=== PATIENT | female | born 1980 | race Caucasian/White ===

== ENCOUNTER → 2019-02-16 16:07 | Outpatient (CLI) | payer OTHER, SELFPAY ==
[2019-02-19 14:40] LABS: HPV Reflexed? NOT INDICATED
== END ==
PROVIDERS: Visit Provider Obstetrics & Gynecology
DX: Z12.4 Encounter for screening for malignant neoplasm of cervix (principal)
CPT/HCPCS: 88175; G0145

== ENCOUNTER → 2019-06-15 09:26 | Outpatient (CLI) | payer OTHER, SELFPAY ==
[2019-06-15 11:07] LABS: hCG Titer Quant., Serum 263 mIU/mL (1-3)
== END ==
PROVIDERS: Visit Provider Obstetrics & Gynecology
DX: N91.2 Amenorrhea, unspecified (principal)
CPT/HCPCS: 36415; 84702; 86850; 86900

== ENCOUNTER → 2019-06-17 09:23 | Outpatient (CLI) | payer OTHER, SELFPAY ==
[2019-06-17 10:57] LABS: hCG Titer Quant., Serum 93 mIU/mL (1-3)
== END ==
PROVIDERS: Visit Provider Obstetrics & Gynecology
DX: O20.0 Threatened abortion (principal); Z3A.00 Weeks of gestation of pregnancy not specified
CPT/HCPCS: 36415; 84702

== ENCOUNTER → 2021-02-06 16:30 | Outpatient (CLI) | payer OTHER, SELFPAY | PROVIDERS: Referring Provider Obstetrics & Gynecology; Visit Provider Obstetrics & Gynecology | DX: Z01.812 Encounter for preprocedural laboratory examination (principal) | CPT/HCPCS: 87635; C9803; U0002 ==

== ENCOUNTER 2021-02-11 07:15 | Inpatient (IN) | payer OTHER, SELFPAY ==
[2021-02-11] VITALS (62 sets, daily range): BP systolic 79–136; BP diastolic 42–67; PULSE 53–105; TEMP 36.1–37.3; O2SAT 92–100; BMI 24.8
[2021-02-11] MEDS: Oxytocin 30 units/NS 500 ml 30 UNITS/500 ML IV.SOLN IV (08:14)
[2021-02-11 08:21] LABS: Absolute Lymphocyte Count 1.29 X10^3/uL (0.83-4.51); Absolute Neutrophil Count 4.5 X10^3/uL (2.0-7.7); Basophil# 0.02 X10^3/uL; Basophil% 0.3 % (0-1); Eosinophil# 0.06 X10^3/uL; Hematocrit 36.9 % (37-47); Hemoglobin 12.5 g/dL (12.0-15.0); Lymphocyte # 1.29 X10^3/ul (4.0); Lymphocyte % 20.5 % (19-41); Mean Corp Hgb Conc 33.9 g/dL (32-36); Mean Corpuscular Volume 94.4 fL (81-99); Mean Platelet Vol. 10.9 fl (6.2-12.0); Monocyte# 0.39 X10^3/uL; Monocyte% 6.2 % (0-10); NRBC Flagged by Analyzer 0 % (0-5); Neutrophil # 4.49 X10^3/uL (2.7-7.7); Neutrophil % 71.2 % (47-70); Platelet Count 172 K/mm3 (150-450); RBC Distribution Width SD 47.7 fl (35.1-43.9); Red Blood Count 3.91 M/mm3 (4.2-5.4); White Blood Count 6.3 K/mm3 (4.4-11.0)
[2021-02-11] MEDS: Lactated Ringers 1,000 ML 50 ML IV (08:30)
[2021-02-11] MEDS: 0.9% Normal Saline Single 100 ML IV.SOLN. INTRA-UTER (08:38)
--- NOTE | 2021-02-11 08:42 | PCM.HP.OB ---
History Date of Admission: 02/11/21 Final MARINA: 02/17/21 Final MARINA Source: US <20 weeks Gestational age: 39 Weeks and 1 Days History of this : This is a 40 year-old, 2 para 0-0-1-0 presents at 39-1/7 weeks for induction of labor to advanced maternal age. She denies any vaginal bleeding or leaking of fluid. She has had no regular contractions. She is had good movement. Her has been uncomplicated to date except for advanced maternal age. Allergies carbamazepine [From Tegretol] Adverse Reaction (Mild, Verified 02/11/21 07:35) Vomiting used for seizures in childhood; cannot remember exact reaction. phenytoin [From Dilantin] Adverse Reaction (Verified 02/11/21 07:36) Vomiting Home Medications: Home Medications Vits [Prenatabs FA] 1 tablet PO DAILY 02/11/21 Smoking Status: Never smoker Alcohol: None Number of Fetus(es): 1 NST - FHR Rate Baby A Baseline: normal Variability:: Moderate Accelerations:: 15 x 15 Decelerations:: None NST Reactive:: Yes FHR Category:: Category I Uterine Activity:: quiet History Past Pregnancies: Past Pregnancies Delivery Date Name GA/ Weeks Outcome Route Wt Sex Labor Length Anesthesia Delivery Location Provider FOB Expected Delivery Method: Spontaneous Vaginal Review of Systems Constitutional: Denies: Anorexia, Chills, Fever Eyes: Denies: Blurred vision Cardiovascular: Denies: Chest Pain Respiratory: Denies: Cough, Shortness of Breath Gastrointestinal: Denies: Constipation, Diarrhea Neurological: Denies: Balance problems, Change in Speech, Slurred speech, Confusion Psychiatric: Reports: Anxiety Hematologic/ Lymphatic: Denies: Hx of blood clot Physical Exam Vitals: Vital Signs Temp Pulse BP Pulse Ox 99.0 F 74 115/58 L 98 02/11/21 08:33 02/11/21 08:33 02/11/21 08:33 02/11/21 07:47 General: Alert, Cooperative, No apparent distress Cardiovascular: Regular rate Lungs: Normal air movement Abdomen: Soft, Non Tender, Non-Distended, Gravid, Appropriate for Gestational Age Extremities:: No edema Neurological: Neuro grossly intact. Negative for: Slurred Speech, Unsteady Gait PSYCHIATRIC REGISTERED NURSE: Normal external genitalia Estimated gestational size: Appropriate for gestational size Presentation: Cephalic Cervix Dilation (cm): 1 Station: -2 Effacement (%): 70 Assessment/Plan This is a 40 year-old, avid 2 para 0 at 39 1/7 weeks for induction of labor due advanced maternal age. Risk benefits and alternatives to Gonzalez induction with Pitocin and artificial rupture membranes were discussed with patient, her questions were answered to her satisfaction and consent was signed. May have epidural as needed for pain control. weight is less than 4500 g and pelvis is clinically adequate to expect vaginal delivery. Procedure note: Gonzalez catheter was placed over stylette through the internal cervical os in the usual sterile fashion inflated to 30 cc. Placement over internal os was confirmed. Patient and fetus tolerated the procedure well.
[2021-02-11] MEDS: Lactated Ringers 500 ML 999 ML IV (12:51)
[2021-02-11] MEDS: fentaNYL-bupivacaine (epidural) 100 ML BAG EPIDURAL ×2 (13:28→18:25)
[2021-02-11] MEDS: Lactated Ringers 1,000 ML 200 ML IV (17:26)
[2021-02-11] MEDS: Oxytocin 30 units/NS 500 ml 30 UNITS/500 ML IV.SOLN 334 UNITS IV (22:32)
[2021-02-11] MEDS: Methylergonovine 0.2 MG/ML Ampul IM (22:40)
--- NOTE | 2021-02-11 22:53 | PCM.OPRPT ---
Vaginal Delivery Maternal Presentation: Medically Indicated Induction Method of Induction: Pitocin, Gonzalez Bulb, Amniotomy Medical Reason for Induction: - - advanced maternal age Amniotic Membrane Rupture Type: Artificial Amniotic Fluid Description: Clear Final MARINA: 02/17/21 Final MARINA Source: US <20 weeks Gestational age: 39 Weeks and 1 Days Date of Procedure: 02/11/21 Pre-Operative Diagnosis: labor Post-Operative Diagnosis: same Surgery/ Procedure Performed: Spontaneous Vaginal Delivery Type of Anesthesia: Epidural Description of Procedure: A vigorous female was delivered SKY over a second-degree perineal laceration. The remainder the was delivered with maternal pushing and gentle traction only in less than 15 seconds. The Pitocin infusion was initiated for active management of the third stage. The cord was clamped and cut after 1 minute. The was attended to by the waiting nursing staff. The placenta was delivered spontaneously and intact. The cervix and vagina were intact. The Methergine was given after some clots were removed from the uterus to help prevent uterine atony. After the Methergine, IV Pitocin and fundal massage the uterus was firm and bleeding was minimal. The second-degree perineal laceration was repaired with 3-0 Vicryl suture in a running standard fashion. Sponge and needle counts were correct. A vaginal sweep was completed by me. Delivery time 2228 Presentation: SKY Placental Delivery Description: Spontaneous, Expressed Placenta Disposition: [facility] Cord Vessel Description: 3 Vessels Cord Entanglement: None Estimated Blood Loss: 500 A gender: Female - Aislynn (1 minute): 9 (5 minute): 9 Episiotomy Description: None Laceration: 2nd degree - perineal Medications given after delivery: IV Pitocin, IM Methergin Complications: None
[2021-02-12] VITALS (8 sets, daily range): BP systolic 99–109; BP diastolic 40–60; PULSE 65–78; RESP 16–18; TEMP 36.1–36.5
[2021-02-12] MEDS: Naproxen 250 MG Tablet 500 MG PO ×2 (10:44→20:26)
[2021-02-12] MEDS: Senna/Docusate Sodium 1 Tablet PO (12:37)
--- NOTE | 2021-02-12 13:30 | PCM.PN.OB ---
Subjective: Doing well per patient and nursing staff. Ambulating and taking p.o. without difficulty. Voiding and passing flatus. Pain controlled. Breast-feeding without difficulty. Is any headache, visual changes, chest pain, shortness of breath, leg pain, increased vaginal bleeding or clots. DC home tomorrow - Physical Exam Vitals/I&O's: Vital Signs Temp Pulse Resp BP Pulse Ox 97.7 F L 77 16 103/46 L 100 02/12/21 08:30 02/12/21 08:30 02/12/21 08:30 02/12/21 08:30 02/11/21 19:58 Oxygen Delivery Method Room Air Weight: 168 lb 6 oz Body Mass Index (BMI) 24.8 Intake and Output for Last 24 Hours 02/10/21 02/11/21 02/12/21 23:59 23:59 23:59 Intake Total 2805.87 / 2805.87 327.43 / 327.43 Output Total 1850 / 1850 Balance 2805.87 / 2805.87 -1522.57 / -1522.57 General: Alert, Oriented x3, Cooperative HEENT: Atraumatic, Normocephalic Neck: Trachea Midline Lungs: Clear to auscultation, Normal air movement, No rhonchi, No wheeze Cardiovascular: Regular rate, Regular Rhythm, No murmurs Abdomen: Bowel Sounds Present, Soft - Fundus firm to below umbilicus Extremities: No edema - Homans negative Psych/Mental Status: Normal Affect, Appropriate Current Medications Acetaminophen (Acetaminophen 500 Mg Tablet) 1,000 mg PO Q8H PRN PRN PRN Reason: Pain Score 1-3 Bisacodyl (Bisacodyl 10 Mg Suppository) 10 mg RC UD PRN PRN Reason: If no BM Dibucaine (Dibucaine 30 Gm Tube) 1 applic TOPICAL TID PRN PRN; Protocol PRN Reason: Discomfort Hydrocortisone (Hydrocortisone 2.5% Crm) 1 applic TOPICAL TID PRN PRN; Protocol PRN Reason: Discomfort Methylergonovine Maleate (Methylergonovine 0.2 Mg/Ml Ampul) 0.2 mg IM X1 PRN PRN Reason: Excess bleeding/uterine atony Naproxen (Naproxen 250 Mg Tablet) 500 mg PO Q8H PRN PRN PRN Reason: Pain Score 1-3 Last Admin: 02/12/21 10:44 Dose: 500 mg Documented by: Ondansetron HCl (Ondansetron 4 Mg/2 Ml Vial) 4 mg IV Q4H PRN PRN PRN Reason: Nausea Prochlorperazine Edisylate (Prochlorperazine 10 Mg/2 Ml Vial) 10 mg IV Q6H PRN PRN PRN Reason: NAUSEA/VOMITING Senna/Docusate Sodium (Senna/Docusate Sodium 1 Tablet) 1 - 2 tablet PO DAILY PRN PRN PRN Reason: Constipation Last Admin: 02/12/21 12:37 Dose: 2 tablet Documented by: Simethicone (Simethicone 80 Mg Tablet) 80 mg PO PCHS PRN PRN Reason: Indigestion/Stomach pain Sodium Chloride (0.9% Saline Lock 10 Ml Syringe) 5 - 15 ml IV UD PRN PRN Reason: SALINE FLUSH Medical Necessity - Tobacco Use Smoking Status: Never smoker Assessment/Plan A:PPD #1 2nd degree perineal laceration P: 1) Routine and instructions 2) Pain management 3) vitals stable 4) D/C home tomorrow
[2021-02-12] MEDS: Acetaminophen 500 MG Tablet 1000 MG PO (15:48)
[2021-02-13 03:36] VITALS: BP 109/44; PULSE 71; RESP 16; TEMP 36.5
--- NOTE | 2021-02-13 07:22 | PCM.PN.OB ---
Subjective: pain well controlled, average lochia. No BM yet. Urinating w/o difficulty. Working on - Physical Exam Vitals/I&O's: Vital Signs Temp Pulse Resp BP Pulse Ox 97.7 F L 71 16 109/44 L 100 02/13/21 03:36 02/13/21 03:36 02/13/21 03:36 02/13/21 03:36 02/11/21 19:58 Oxygen Delivery Method Room Air Weight: 76.374 kg Body Mass Index (BMI) 24.8 Intake and Output for Last 24 Hours 02/11/21 02/12/21 02/13/21 23:59 23:59 23:59 Intake Total 2805.87 / 2805.87 327.43 / 327.43 Output Total 1850 / 1850 Balance 2805.87 / 2805.87 -1522.57 / -1522.57 General: Alert, Cooperative, No apparent distress Current Medications Acetaminophen (Acetaminophen 500 Mg Tablet) 1,000 mg PO Q8H PRN PRN PRN Reason: Pain Score 1-3 Last Admin: 02/12/21 15:48 Dose: 1,000 mg Documented by: Bisacodyl (Bisacodyl 10 Mg Suppository) 10 mg RC UD PRN PRN Reason: If no BM Dibucaine (Dibucaine 30 Gm Tube) 1 applic TOPICAL TID PRN PRN; Protocol PRN Reason: Discomfort Hydrocortisone (Hydrocortisone 2.5% Crm) 1 applic TOPICAL TID PRN PRN; Protocol PRN Reason: Discomfort Methylergonovine Maleate (Methylergonovine 0.2 Mg/Ml Ampul) 0.2 mg IM X1 PRN PRN Reason: Excess bleeding/uterine atony Naproxen (Naproxen 250 Mg Tablet) 500 mg PO Q8H PRN PRN PRN Reason: Pain Score 1-3 Last Admin: 02/12/21 20:26 Dose: 500 mg Documented by: Ondansetron HCl (Ondansetron 4 Mg/2 Ml Vial) 4 mg IV Q4H PRN PRN PRN Reason: Nausea Prochlorperazine Edisylate (Prochlorperazine 10 Mg/2 Ml Vial) 10 mg IV Q6H PRN PRN PRN Reason: NAUSEA/VOMITING Senna/Docusate Sodium (Senna/Docusate Sodium 1 Tablet) 1 - 2 tablet PO DAILY PRN PRN PRN Reason: Constipation Last Admin: 02/12/21 12:37 Dose: 2 tablet Documented by: Simethicone (Simethicone 80 Mg Tablet) 80 mg PO PCHS PRN PRN Reason: Indigestion/Stomach pain Sodium Chloride (0.9% Saline Lock 10 Ml Syringe) 5 - 15 ml IV UD PRN PRN Reason: SALINE FLUSH Medical Necessity - Tobacco Use Smoking Status: Never smoker Assessment/Plan PPD#2 s/p doing well routine instructions
--- NOTE | 2021-02-13 07:24 | DCINST_ITS ---
Discharge Diet: No Restrictions Discharge Activity: Return to Normal Activity, May not drive while taking narcotic pain medications., May Shower May resume sexual activity in: 4-6 weeks Additional Activity Instructions:: Nothing in the vagina for 4-6 weeks. You may return to work/school in 6 weeks. Call your doctor if your incision/area has: Continuous Slow Oozing, Sudden Increased Bleeding, Increased Pain/ Swelling, Increased Redness, Foul Smelling Discharge Additional Instructions: If you experience any of the following, contact your healthcare provider. * Bleeding that soaks a pad every hour for 2 hours * Fever 100.4 or higher * Unrelieved incision or abdominal pain * Swelling, redness, discharge or bleeding from your incision or episiotomy site * Your incision begins to separate * Problems urinating (including inability to urinate or burning while urinating). * Visual changes * Severe headache * Flu-like symptoms * Pain or redness in one of both of your breasts * Pain, warmth, tenderness or swelling in your legs, especially the calf area * Frequent nausea and vomiting * Symptoms of depression or anxiety If you experience any of the following, call 911 or go to the nearest Emergency Room. * Chest pain * Problems breathing * Seizure activity * Partial or complete paralysis of a body part, slurred speech, weakness or drooping of the face, or a sudden inability to walk or hold your balance Allergies/Adverse Reactions: Allergies carbamazepine [From Tegretol] Adverse Reaction (Mild, Verified 02/11/21 07:35) Vomiting used for seizures in childhood; cannot remember exact reaction. phenytoin [From Dilantin] Adverse Reaction (Verified 02/11/21 07:36) Vomiting Medications to take at Discharge Vits [Prenatabs FA ] 1 tablet PO DAILY 02/11/21 Ibuprofen [Motrin] 600 mg PO Q6H PRN #60 tab 02/13/21 The following prescriptions were given: Ibuprofen [Motrin] 600 mg PO Q6H PRN #60 tab PRN Reason: Pain Transmission Status: Pending to [id number] Please Follow Up With: Ivory Pereira MD - [phone] When: Call to make an appointment with your doctor's office in 1-2 and 6 weeks or as needed Primary Care Physician: Care Physician,No Primary [Primary Care Provider] - Test Results: Test results from this visit will be discussed in further detail at your follow- up appointment, if applicable.
[2021-02-13 08:30] VITALS: BP 104/59; PULSE 71; RESP 16; TEMP 36.5
== END 2021-02-13 10:25 | disposition home or self-care (01) | DRG 807 ==
PROVIDERS: Advanced Practice Midwife; Admitting Provider Obstetrics & Gynecology; Referring Provider Obstetrics & Gynecology; Visit Provider Obstetrics & Gynecology
DX: O70.1 Second degree perineal laceration during delivery (principal); Z37.0 Single live birth; Z3A.39 39 weeks gestation of pregnancy
CPT/HCPCS: 59025; 59050; 85025; 86850; 86900; 86901; 99218; J7120; G0378

== ENCOUNTER 2021-03-01 13:46 | Outpatient (RCR) | payer OTHER, SELFPAY ==
[2021-02-11 07:33] VITALS: BMI 24.8
== END 2021-05-02 23:59 ==
LOC: IMMUN 13:46
PROVIDERS: Visit Provider Family Medicine
DX: Z23 Encounter for immunization (principal)
CPT/HCPCS: 0001A; 0002A; 91300

== ENCOUNTER 2023-10-10 08:16 | Day surgery (SDC) | payer OTHER, SELFPAY ==
--- NOTE | 2023-09-24 17:20 | PCM.HP.BLA ---
History and Physical Date of Admission: 10/10/23 HPI: The patient is a 42 year old female presenting for pre-operative visit. She is scheduled for Hysteroscopy D&C, polyp resection, for endometrial polyp on 10/10/23. Procedure discussed along with risks, benefits and complications. Other alternatives discussed for management. Consent form signed? Yes. ? ? PAST MEDICAL HISTORY PAST MEDICAL HISTORY Diagnosis Date ? Breast lump ? ? Environmental allergies ? ? Infertility, female ? ? Seizure (HCC) ? ? Off medication since age 15 ? ? PAST SURGICAL HISTORY PAST SURGICAL HISTORY Procedure Laterality Date ? BX BREAST PERC NEED W/GUID ? 01/09/13 ? U/S needle core bx 1 Oclock left breast mass ? MASTECTOMY, PARTIAL ? 01-29-13 ? left ? PAST SURGICAL HISTORY OF ? ? ? breast implants ? REM LESION TRUNK,ARM, LEG <0.5 CM ? 03/07/13 ? Exc upper back deacon cyst ? ? ? CURRENT MEDICATIONS Current Outpatient Medications Medication Sig Dispense Refill ? [id number] ( VITAMIN) tab Take 1 tablet by mouth. ? ? ? omega-3/dha/epa/fish oil (FISH OIL HIGH POTENCY ORAL) Take by mouth. ? ? ? No current facility-administered medications for this visit. ? ? ALLERGIES: Succinylcholine Chloride and Tegretol [Carbamazepine] ? PERSONAL HISTORY: SOCIAL HISTORY Social History ? Tobacco Use ? Smoking status: Never ? Smokeless tobacco: Never Vaping Use ? Vaping Use: Never used Substance Use Topics ? Alcohol use: Not Currently ? ? Alcohol/week: 1.0 standard drink of alcohol ? ? Types: 1 Glasses of Wine (5oz) per week ? ? Comment: rare ? Drug use: No ? FAMILY HISTORY: FAMILY HISTORY FAMILY HISTORY Problem Relation Age of Onset ? Cancer Mother ? ? skin cancer ? other (endometrosis) Mother ? ? Diabetes Father ? ? No Known Problems Sister ? ? other (ovarian cyst) Sister ? ? Stroke Maternal Grandfather ? ? Heart Paternal Grandmother ? ? Cancer Paternal Grandmother ? ? Lung? ? Alzheimer's Disease Paternal Grandfather ? ? ? REVIEW OF SYMPTOMS: GENERAL: denies fevers or chills ENDOCRINOLOGY: has not been on steroids Cardiology : denies palpitations or chest pain Respiratory: denies SOB or cough Hematology: denies history of prolonged bleeding or easy bruising or VTE Allergy: Denies history of personal or family history of allergy to anesthesia ? PHYSICAL EXAMINATION: ? VITALS: Last menstrual period 07/21/2023. ? GENERAL: The patient is well nourished, well hydrated in no acute distress. , The patient is oriented to time, place, and person. NECK: Supple. No lynphadenopathy, normal thyroid, no thyromegaly. LUNGS: Clear to auscultation bilaterally. no wheezes, rhonchi or rales HEART: Regular rate and rhythm, Normal heart sounds, and No murmurs or gallops GENITALIA: Normal external genitalia, Urethral meatus normal, Bladder nontender, normal vagina and normal vaginal tone, normal cervix, normal uterus, size and consistency, normal adnexa without masses or tenderness, and perineum WNL WET PREP: Not indicated ? IMPRESSION: endometrial polyp ? PLAN: The risks/benefits/alternatives and personal involved for the planned hysteroscopy D&C, polyp resection were reviewed with the patient. Her questions were answered to her satisfaction and she desires to proceed. Consent was signed. I reviewed with her postop instructions and expectations. ? Given aygestin to delay menses ? I have reviewed and updated past medical and surgical history, medications and allergies Assessment & Plan Assessment/Plan (1) Endometrial polyp:
[2023-10-10 08:45] LABS: Internal QC Validated? YES +Cl - CLEAR BKGD; Pregnancy, Urine Negative Negative
[2023-10-10] MEDS: Lactated Ringers 1,000 ML 15 ML IV (09:01)
[2023-10-10] MEDS: Ketorolac 30 MG/ML Syringe IV (09:02)
[2023-10-10] MEDS: Acetaminophen 500 MG Tablet 1000 MG PO (09:02)
[2023-10-10 09:05] VITALS: BP 111/70; PULSE 69; RESP 16; TEMP 36.8; O2SAT 100; BMI 22.4
[2023-10-10 09:08] LABS: Hematocrit 41.3 % (37-47); Hemoglobin 13.3 g/dL (12.0-15.0); Mean Corp Hgb Conc 32.2 g/dL (32-36); Mean Corpuscular Hgb 29.7 pg (27.0-32.0); Mean Corpuscular Volume 92.2 fL (81-99); Mean Platelet Vol. 10.5 fl (6.2-12.0); Platelet Count 216 K/mm3 (150-450); RBC Distribution Width CV 12.8 % (11.6-14.6); Red Blood Count 4.48 M/mm3 (4.2-5.4); White Blood Count 5.4 K/mm3 (4.4-11.0)
--- NOTE | 2023-10-10 10:05 | EMB_PTH ---
PATIENT: JOSEPHINE ARENAS [place] [facility] [place][id number] AGE/SX: 42/F ROOM: RE10/10/[address]: Dr. Ivory Pereira MD : [id number] BED: DIS: 10/10/2023 SPEC #: [id number] RECD: 10/10/23 13:45 STATUS: JUSTINE REConner #: [id number] MELVIN: 10/10/23 10:[address]: Ivory Pereira DEPT: SURGICAL PATHOLOGY RECD BY: Radha Sarabia ENTERED: 10/11/23 09:27 SP TYPE: ENDOM BX/C ROB DR: No Primary Care Phys Tissues: Endometrium, NOS Procedures: Surgery Specimen Level IV HEADER OPERATION: Hysteroscopy, D & C Symphion PRE-OP DIAGNOSIS: Endometrial polyp TISSUE SUBMITTED: Endometrial curettings and contents MICROSCOPIC DIAGNOSIS Endometrium, curettings: Secretory endometrium. Fragments of myometrium with changes suspicious for adenomyosis. AM:lonnie 10/14/2023 MICROSCOPIC DESCRIPTION Slides are reviewed. GROSS DESCRIPTION Received in fixative is one container labeled with the patient's name and designated Endometrial curettings. The specimen consists of multiple irregular fragments of pink-licea soft tissue that in aggregate measure 5.0 x 4.0 x 0.2 cm. The specimen is totally submitted in three cassettes. / AM:lonnie 10/11/2023 TC:5 CPT: 58651
[2023-10-10] MEDS: Lidocaine 1% /Epi 1:100 (20ml) 20 ML Vial (12:10)
--- NOTE | 2023-10-10 12:27 | DCINST_ITS ---
Discharge Instructions Diet Discharge Diet: No restrictions Activity Discharge Activity: May Drive (10/11) Return to work on:: 10/14/23 May shower in (days): 1 May resume sexual activity in: 1 week Lifting Restrictions: none Dressing / Incision Call your doctor if your incision/area has: Sudden Increased Bleeding and Foul Smelling Discharge Call your doctor if you observe: Fever of 101 or Higher and Using more than 1 pad per hour (for 2 hrs in a row) Follow Up Care Please Follow Up With: Ivory Pereira MD When: YOu do not need a postop appointment. Monitor you bleeding over the next couple of cycles and let us know if you have problems or concerns. Call [phone] to make an appointment or send [email or web address] message with any concerns Test Results: Test results from this visit will be discussed in further detail at your follow- up appointment, if applicable. Discharge Plan Admission Primary Reason for Your Visit: Hysteroscopy dilation and curettage Attending Provider: Ivory Pereira Primary Care Provider: Care Physician,Kelly Primary Discharge Orders/Prescriptions Prescriptions: Continued vit,[id number] 1 TABLET tablet 1 tablet PO DAILY omega-3 fatty acids 300 mg capsule 600 mg PO DAILY Referrals / Follow Up: Care Physician,No Primary [Primary Care Provider] - Disposition Disposition (needs filled in before D/C Order can be placed): Home, Self Care
--- NOTE | 2023-10-10 12:29 | OP.PCM_ITS ---
Problems Associated Problem List Diagnoses (1) Endometrial polyp: Report of Operation Date of Procedure: 10/10/23 Pre-Operative Diagnosis: endometrial polyp Post-Operative Diagnosis: same Surgery/Procedure Performed:: Hysteroscopy D&C with possible polyp resection Description of Surgical Findings:: lush endometrium, normal cervix and vagina Surgeon: Ivory Pereira tin whiz machine operator: Rosio camacho [id number] Type of Anesthesia: MAC/Supplemental/Local Anesthesiologist: Frankie Aguilera Special Medications: none Specimen's removed: endometrial curettings, possible polyp Drains: none Estimated Blood Loss (mL): 10 Fluids Replaced: 350 mL Description of Procedure: The patient was taken to the OR where she was prepped and draped in dorsal l ithotomy position. The weighted speculum was placed in the vagina and the anterior lip of the cervix was grasped with a single-tooth tenaculum. C C were 5mm 1% lidocaine with 1-100,000 epinephrine solution C C were 5mm 1% lidocaine with 1-100,000 epinephrine solution a paracervical block was administered with 1% Xylocaine with 1-1000 epinephrine solution. The cervix was dilated easily was the uterus was anteverted.Diagnostic hysteroscopy was performed and the above findings were noted. The hysteroscope was removed. The Symphion device was readied and inserted. .A visual D&C was done of the endometrial cavity. There was a lot of lush endometrium. There may have been a polyp on the left Posterior part of the uterine cavity.The instruments were removed from the vagina. The specimen was handed off and sent to pathology. All sponge and needle counts were correct. Vaginal sweep was performed by me. The patient was awakened and taken to the recovery room in stable condition. Grafts/Implants Used: none Procedure Start Time: 12:09 Procedure Stop Time: 12:22 Complications none Admit VTE Documentation VTE Present on Admission: No VTE Mechan Device Prophylaxis: SCD's VTE Pharm Prophylaxis ordered?: No Reason prophylaxis not ordered:: Procedure Not Indicated
[2023-10-10 12:38] VITALS: BP 100/51; BP 111/70; PULSE 82; RESP 16; TEMP 36.8; O2SAT 100
[2023-10-10 12:43] VITALS: BP 101/58; BP 111/70; PULSE 77; RESP 16; O2SAT 100
[2023-10-10 12:49] VITALS: BP 100/53; BP 111/70; PULSE 73; RESP 14; O2SAT 100
[2023-10-10 13:47] VITALS: BP 111/70
== END 2023-10-10 13:50 | disposition home or self-care (01) ==
LOC: SDC 08:17 → AC 08:19
PROVIDERS: Referring Provider Obstetrics & Gynecology; Visit Provider Obstetrics & Gynecology
PROC: 0UB98ZZ Excision of Uterus, Via Natural or Artificial Opening Endoscopic (ICD-10-PCS; CPT 58558; principal; 2023-10-10 09:50)
DX: N84.0 Polyp of corpus uteri (principal)
CPT/HCPCS: 58558; 00952; 81025; 85027; 88305; J7120; J2405